=== PATIENT | male | born 1965 | race Caucasian/White ===

== ENCOUNTER 2023-08-21 00:59 | Inpatient (IN) | payer BC ==
[2023-08-21 01:55] LABS: TROPONIN I 34.7 pg/mL (4.0-60.3)
[2023-08-21 01:59] LABS: BASOPHILS ABSOLUTE AUTO 0.1 x10-3/uL (0.0-0.3); BASOPHILS PERCENT AUTO 1.2 % (0.3-3.8); EOSINOPHILS ABSOLUTE AUTO 0.1 x10-3/uL (0.0-0.6); EOSINOPHILS PERCENT AUTO 2.2 % (0.1-6.8); HEMATOCRIT 37.5 % (38.3-50.1); HEMOGLOBIN 13.1 g/dL (12.9-17.7); LYMPHOCYTES ABSOLUTE AUTO 1.4 x10-3/uL (0.5-4.5); LYMPHOCYTES PERCENT AUTO 26.8 % (15.8-45.3); MEAN CORPUSCULAR HEMOGLOBIN 33.9 pg (27.0-33.3); MEAN CORPUSCULAR HGB CONC 34.9 g/dL (28.7-35.3); MEAN CORPUSCULAR VOLUME 97.2 fL (80.8-98.7); MONOCYTES ABSOLUTE AUTO 0.6 x10-3/uL (0.0-1.2); MONOCYTES PERCENT AUTO 10.3 % (5.5-15.2); NEUTROPHILS ABSOLUTE AUTO 3.2 x10-3/uL (1.7-6.9); NEUTROPHILS PERCENT AUTO 59.5 % (40.3-71.8); PLATELET COUNT,PLT 93 x10(3)uL (117-477); RED BLOOD CELL COUNT 3.85 x10(6)uL (3.90-5.90); RED CELL DISTRIBUTION WIDTH 14.7 % (12.4-15.0); WHITE BLOOD CELL COUNT,WBC 5.4 x10-3/uL (3.2-10.1)
[2023-08-21 02:02] LABS: ETHANOL BLOOD MEDICAL < 0.03 % (<0.03)
[2023-08-21 02:05] LABS: INR 1.13 (1.00-1.24); PROTHROMBIN TIME 11.6 sec (9.0-11.1); PTT,PARTIAL THROMBOPLSTIN TIME 32.3 SECONDS (24.4-33.2)
[2023-08-21 02:09] LABS: APPEARANCE,URINE CLEAR (CLEAR); BACTERIA,URINE FEW (NS); BILIRUBIN,URINE NEGATIVE (NEGATIVE); COLOR,URINE YELLOW (YELLOW); GLUCOSE,URINE NORMAL (NORMAL); KETONES,URINE NEGATIVE (NEGATIVE); LEUKOCYTE ESTERASE,URINE NEGATIVE (NEGATIVE); NITRITE,URINE NEGATIVE (NEGATIVE); OCCULT BLOOD,URINE NEGATIVE (NEGATIVE); PROTEIN,URINE NEGATIVE (NEGATIVE); RBC,URINE 0-5 (0-5); SQUAMOUS EPITHELIAL CELLS,UR RARE (NS,R,O); UROBILINOGEN,URINE NORMAL (NEGATIVE); WBC,URINE 0-5 (0-5)
[2023-08-21 02:14] LABS: A/G RATIO 0.9; ALANINE AMINOTRANSFERASE,ALT 30 U/L (12-36); ALBUMIN 3.4 g/dL (3.5-5.2); ALKALINE PHOSPHATASE 62 IU/L (56-112); ASPARTATE AMNIOTRANSFERASE,AST 52 IU/L (5-25); BILIRUBIN TOTAL 0.6 mg/dL (0.1-1.3); BLOOD UREA NITROGEN,BUN 13 mg/dL (7-18); BUN/CREATININE RATIO 5.2 (9-20); CARBON DIOXIDE,CO2 36 mmol/L (21-32); CHLORIDE,CL 97 mmol/L (100-110); EST CRCL DRUG DOSING (CG) 31.16 mL/min; ESTIMATED GFR 29 mL/min (>60); GLUCOSE RANDOM 112 mg/dL (80-116); PROTEIN TOTAL,TP 7.1 g/dL (6.0-8.0); SODIUM,NA 141 mmol/L (135-145)
[2023-08-21 02:15] LABS: CREATININE 2.5 mg/dL (0.70-1.30); POTASSIUM,K 2.6 mmol/L (3.5-5.3)
[2023-08-21 02:16] LABS: CALCIUM 14.9 mg/dL (8.6-10.2)
[2023-08-21 02:22] LABS: AMPHETAMINES SCREEN, URINE NEGATIVE (NEGATIVE); BARBITURATE SCREEN,URINE NEGATIVE (NEGATIVE); BENZODIAZEPINES SCREEN,URINE NEGATIVE (NEGATIVE); METHADONE SCREEN, URINE NEGATIVE (NEGATIVE); METHAMPHETAMINE SCREEN, URINE NEGATIVE (NEGATIVE); OXYCODONE SCREEN,URINE POSITIVE (NEGATIVE); THC SCREEN,URINE NEGATIVE (NEGATIVE)
[2023-08-21] MEDS ORDERED: Potassium Chloride 20 MEQ Tab.ER PO ONE (02:22)
[2023-08-21 02:23] LABS: BUPRENORPHINE SCREEN,URINE NEGATIVE (NEGATIVE)
[2023-08-21] MEDS ORDERED: NS + KCl 20mEq/L 1,000 ML IV SCH ×2 (02:30→03:45)
[2023-08-21] MEDS ORDERED: Potassium Chloride 100 ML ONE (02:38)
[2023-08-21] MEDS ORDERED: Potassium Chloride 20 MEQ in Premix Bag 1 BAG IV ONE (02:39)
[2023-08-21] MEDS ORDERED: Sodium Chloride 0.9% 1,000 ML IV SCH (02:45)
[2023-08-21] MEDS ORDERED: Magnesium Sulfate/Water 2 GM in Premix Bag 1 BAG IV ONE (03:04)
[2023-08-21] MEDS ORDERED: Ondansetron 4 MG/2 ML SDV IV PRN (03:31)
[2023-08-21] MEDS ORDERED: Sennosides/Docusate Sodium 50-8.6 MG Tab PO PRN (03:31)
[2023-08-21] MEDS ORDERED: Enoxaparin 40 MG/0.4 ML Syringe SUBCUT SCH (03:45)
[2023-08-21 06:44] LABS: BASOPHILS ABSOLUTE AUTO 0.1 x10-3/uL (0.0-0.3); BASOPHILS PERCENT AUTO 1.1 % (0.3-3.8); EOSINOPHILS ABSOLUTE AUTO 0.1 x10-3/uL (0.0-0.6); EOSINOPHILS PERCENT AUTO 2.6 % (0.1-6.8); HEMATOCRIT 36.7 % (38.3-50.1); HEMOGLOBIN 12.6 g/dL (12.9-17.7); LYMPHOCYTES ABSOLUTE AUTO 1.4 x10-3/uL (0.5-4.5); LYMPHOCYTES PERCENT AUTO 24.4 % (15.8-45.3); MEAN CORPUSCULAR HEMOGLOBIN 33.4 pg (27.0-33.3); MEAN CORPUSCULAR HGB CONC 34.4 g/dL (28.7-35.3); MEAN CORPUSCULAR VOLUME 97.3 fL (80.8-98.7); MEAN PLATELET VOLUME 8.3 fL (6.7-11.0); MONOCYTES ABSOLUTE AUTO 0.5 x10-3/uL (0.0-1.2); MONOCYTES PERCENT AUTO 8.6 % (5.5-15.2); NEUTROPHILS ABSOLUTE AUTO 3.5 x10-3/uL (1.7-6.9); NEUTROPHILS PERCENT AUTO 63.3 % (40.3-71.8); PLATELET COUNT,PLT 93 x10(3)uL (117-477); RED BLOOD CELL COUNT 3.77 x10(6)uL (3.90-5.90); RED CELL DISTRIBUTION WIDTH 14.4 % (12.4-15.0); WHITE BLOOD CELL COUNT,WBC 5.6 x10-3/uL (3.2-10.1)
[2023-08-21 06:57] LABS: A/G RATIO 0.9; ALANINE AMINOTRANSFERASE,ALT 27 U/L (12-36); ALBUMIN 3.1 g/dL (3.5-5.2); ALKALINE PHOSPHATASE 57 IU/L (56-112); ASPARTATE AMNIOTRANSFERASE,AST 44 IU/L (5-25); BILIRUBIN TOTAL 0.6 mg/dL (0.1-1.3); BLOOD UREA NITROGEN,BUN 12 mg/dL (7-18); BUN/CREATININE RATIO 5.2 (9-20); CARBON DIOXIDE,CO2 34 mmol/L (21-32); CHLORIDE,CL 100 mmol/L (100-110); EST CRCL DRUG DOSING (CG) 33.87 mL/min; ESTIMATED GFR 32 mL/min (>60); GLUCOSE RANDOM 89 mg/dL (80-116); MAGNESIUM 1.4 mg/dL (1.8-2.5); POTASSIUM,K 2.9 mmol/L (3.5-5.3); PROTEIN TOTAL,TP 6.7 g/dL (6.0-8.0); SODIUM,NA 138 mmol/L (135-145)
[2023-08-21 07:00] LABS: CALCIUM 13.4 mg/dL (8.6-10.2); CREATININE 2.3 mg/dL (0.70-1.30)
[2023-08-21] MEDS ORDERED: Baclofen 10 MG Tab PO PRN (08:58)
[2023-08-21] MEDS ORDERED: Clobetasol 0.05% Crm 15 GM Tube TOP PRN (08:58)
[2023-08-21] MEDS ORDERED: Doxazosin 4 MG Tab PO SCH (09:00)
[2023-08-21] MEDS: oxyCODONE 5 MG Tab PO PRN ×2 (09:30→20:31)
[2023-08-21] MEDS: Doxazosin 2 MG Tab PO SCH ×2 (09:42→20:26)
[2023-08-21] MEDS: Potassium Chloride 20 MEQ Tab.ER PO SCH ×2 (09:43→20:27)
[2023-08-21] MEDS: Losartan 25 MG Tab PO SCH (09:43)
[2023-08-21] MEDS: Folic Acid 1 MG Tab PO SCH (09:43)
[2023-08-21] MEDS: buPROPion 150 MG Tab.ER PO SCH (09:43)
[2023-08-21] MEDS: Escitalopram 20 MG Tab PO SCH (09:43)
[2023-08-21] MEDS: Metoprolol Tartrate 50 MG Tab PO SCH ×2 (09:44→20:27)
[2023-08-21] MEDS: Pantoprazole 40 MG Tab.CR PO SCH (09:44)
[2023-08-21] MEDS: Allopurinol 300 MG Tab PO SCH (09:56)
[2023-08-21] MEDS ORDERED: FLU (Flulaval Quad) 2023-24(6MOS UP)/PF 60 MCG/0.5 ML Syringe IM ONE (10:00)
[2023-08-21] MEDS: NS + KCl 20mEq/L 1,000 ML IV SCH ×2 (12:57→22:05)
[2023-08-21] MEDS: Sodium Chloride 0.9% 10 ML Syringe FLUSH PRN ×2 (17:10→22:30)
[2023-08-21] MEDS: hydrOXYzine HCl 25 MG Tab PO PRN (20:31)
[2023-08-21] MEDS ORDERED: MONTELUKAST SODIUM 4 MG PO SCH (21:00)
[2023-08-22] MEDS: hydrOXYzine HCl 25 MG Tab PO PRN (03:34)
[2023-08-22] MEDS ORDERED: LORazepam 2 MG/ML SDV IVPUSH ONE (05:59)
[2023-08-22] MEDS: Sodium Chloride 0.9% 10 ML Syringe FLUSH PRN ×2 (06:31→10:20)
[2023-08-22] MEDS: NS + KCl 20mEq/L 1,000 ML IV SCH ×3 (06:39→15:49)
[2023-08-22 06:51] LABS: BASOPHILS PERCENT AUTO 0.8 % (0.3-3.8); EOSINOPHILS ABSOLUTE AUTO 0.1 x10-3/uL (0.0-0.6); EOSINOPHILS PERCENT AUTO 1.6 % (0.1-6.8); HEMATOCRIT 31.3 % (38.3-50.1); HEMOGLOBIN 10.8 g/dL (12.9-17.7); LYMPHOCYTES ABSOLUTE AUTO 1.6 x10-3/uL (0.5-4.5); LYMPHOCYTES PERCENT AUTO 27.1 % (15.8-45.3); MEAN CORPUSCULAR HGB CONC 34.5 g/dL (28.7-35.3); MEAN CORPUSCULAR VOLUME 98.6 fL (80.8-98.7); MEAN PLATELET VOLUME 8.9 fL (6.7-11.0); MONOCYTES ABSOLUTE AUTO 0.5 x10-3/uL (0.0-1.2); NEUTROPHILS ABSOLUTE AUTO 3.6 x10-3/uL (1.7-6.9); NEUTROPHILS PERCENT AUTO 62.5 % (40.3-71.8); PLATELET COUNT,PLT 82 x10(3)uL (117-477); RED BLOOD CELL COUNT 3.17 x10(6)uL (3.90-5.90); RED CELL DISTRIBUTION WIDTH 14.6 % (12.4-15.0); WHITE BLOOD CELL COUNT,WBC 5.8 x10-3/uL (3.2-10.1)
[2023-08-22 06:57] LABS: BLOOD UREA NITROGEN,BUN 13 mg/dL (7-18); BUN/CREATININE RATIO 6.8 (9-20); CALCIUM 10.2 mg/dL (8.6-10.2); CARBON DIOXIDE,CO2 28 mmol/L (21-32); CHLORIDE,CL 105 mmol/L (100-110); CREATININE 1.9 mg/dL (0.70-1.30); ESTIMATED GFR 40 mL/min (>60); GLUCOSE RANDOM 76 mg/dL (80-116); POTASSIUM,K 3.6 mmol/L (3.5-5.3); SODIUM,NA 138 mmol/L (135-145)
[2023-08-22] MEDS ORDERED: Magnesium Sulfate/Water 2 GM in Premix Bag 1 BAG IV ONE (08:48)
[2023-08-22] MEDS: Doxazosin 2 MG Tab PO SCH ×2 (09:48→21:14)
[2023-08-22] MEDS: Potassium Chloride 20 MEQ Tab.ER PO SCH ×2 (09:49→21:15)
[2023-08-22] MEDS: Pantoprazole 40 MG Tab.CR PO SCH (09:49)
[2023-08-22] MEDS: Escitalopram 20 MG Tab PO SCH (09:49)
[2023-08-22] MEDS: buPROPion 150 MG Tab.ER PO SCH (09:49)
[2023-08-22] MEDS: Metoprolol Tartrate 50 MG Tab PO SCH ×2 (09:49→21:17)
[2023-08-22] MEDS: Losartan 25 MG Tab PO SCH (09:49)
[2023-08-22] MEDS: Folic Acid 1 MG Tab PO SCH (09:49)
[2023-08-22] MEDS: Allopurinol 300 MG Tab PO SCH (09:49)
[2023-08-22] MEDS ORDERED: Magnesium Sulfate/Water 4 GM in Premix Bag 1 BAG IV ONE (11:00)
[2023-08-22] MEDS: Nicotine 21 MG/24 Hr Patch TRDERM SCH (13:27)
[2023-08-22 13:30] LABS: TSH ULTRASENSITIVE 2.16 IU/mL (0.36-3.74)
[2023-08-22] MEDS ORDERED: LORazepam 2 MG/ML SDV IVPUSH PRN (13:36)
[2023-08-22 15:59] LABS: PARATHYROID HORMONE,INTACT 25 pg/mL (15-65)
[2023-08-22] MEDS: oxyCODONE 5 MG Tab PO PRN (21:09)
[2023-08-22 21:18] LABS: AMMONIA, PLASMA 12
[2023-08-23] MEDS: NS + KCl 20mEq/L 1,000 ML IV SCH ×3 (00:19→16:41)
[2023-08-23] MEDS: Acetaminophen 325 MG Tab PO PRN ×2 (00:28→12:18)
[2023-08-23] MEDS: oxyCODONE 5 MG Tab PO PRN ×3 (04:09→21:43)
[2023-08-23 06:44] LABS: BASOPHILS ABSOLUTE AUTO 0.1 x10-3/uL (0.0-0.3); BASOPHILS PERCENT AUTO 1.1 % (0.3-3.8); EOSINOPHILS ABSOLUTE AUTO 0.1 x10-3/uL (0.0-0.6); EOSINOPHILS PERCENT AUTO 1.8 % (0.1-6.8); HEMATOCRIT 31.9 % (38.3-50.1); LYMPHOCYTES ABSOLUTE AUTO 1.8 x10-3/uL (0.5-4.5); LYMPHOCYTES PERCENT AUTO 32.8 % (15.8-45.3); MEAN CORPUSCULAR HEMOGLOBIN 33.7 pg (27.0-33.3); MEAN CORPUSCULAR HGB CONC 34.3 g/dL (28.7-35.3); MEAN CORPUSCULAR VOLUME 98.3 fL (80.8-98.7); MEAN PLATELET VOLUME 9.1 fL (6.7-11.0); MONOCYTES ABSOLUTE AUTO 0.5 x10-3/uL (0.0-1.2); NEUTROPHILS PERCENT AUTO 55.3 % (40.3-71.8); PLATELET COUNT,PLT 76 x10(3)uL (117-477); RED BLOOD CELL COUNT 3.25 x10(6)uL (3.90-5.90); RED CELL DISTRIBUTION WIDTH 14.8 % (12.4-15.0); WHITE BLOOD CELL COUNT,WBC 5.4 x10-3/uL (3.2-10.1)
[2023-08-23 06:52] LABS: BLOOD UREA NITROGEN,BUN 13 mg/dL (7-18); BUN/CREATININE RATIO 8.1 (9-20); CALCIUM 8.6 mg/dL (8.6-10.2); CARBON DIOXIDE,CO2 24 mmol/L (21-32); CHLORIDE,CL 106 mmol/L (100-110); CREATININE 1.6 mg/dL (0.70-1.30); EST CRCL DRUG DOSING (CG) 48.69 mL/min; ESTIMATED GFR 50 mL/min (>60); GLUCOSE RANDOM 79 mg/dL (80-116); POTASSIUM,K 4.3 mmol/L (3.5-5.3); SODIUM,NA 137 mmol/L (135-145)
[2023-08-23] MEDS: Folic Acid 1 MG Tab PO SCH (08:04)
[2023-08-23] MEDS: Doxazosin 2 MG Tab PO SCH ×2 (08:05→21:35)
[2023-08-23] MEDS: Metoprolol Tartrate 50 MG Tab PO SCH ×2 (08:07→21:35)
[2023-08-23] MEDS: Losartan 25 MG Tab PO SCH (08:08)
[2023-08-23] MEDS: Escitalopram 20 MG Tab PO SCH (08:09)
[2023-08-23] MEDS: Potassium Chloride 20 MEQ Tab.ER PO SCH (08:09)
[2023-08-23] MEDS: Nicotine 21 MG/24 Hr Patch TRDERM SCH (08:10)
[2023-08-23] MEDS: Pantoprazole 40 MG Tab.CR PO SCH (08:11)
[2023-08-23] MEDS: NICOTINE PATCH TRDERM SCH (08:11)
[2023-08-23] MEDS: Allopurinol 300 MG Tab PO SCH (08:12)
[2023-08-23] MEDS: buPROPion 150 MG Tab.ER PO SCH (08:12)
[2023-08-23] MEDS: Nicotine Polacrilex 2 MG Gum BUCCAL PRN (14:51)
[2023-08-23 18:58] LABS: CALCIUM IONIZED PH 7.4 1.44 mmol/L (1.09-1.30); CALCIUM,IONIZED SERUM 1.35 mmol/L (1.09-1.30)
[2023-08-24] MEDS: oxyCODONE 5 MG Tab PO PRN (06:55)
[2023-08-24] MEDS: Nicotine Polacrilex 2 MG Gum BUCCAL PRN (07:00)
[2023-08-24] MEDS: Losartan 25 MG Tab PO SCH (08:30)
[2023-08-24] MEDS: Doxazosin 2 MG Tab PO SCH (08:30)
[2023-08-24] MEDS: Nicotine 21 MG/24 Hr Patch TRDERM SCH (08:31)
[2023-08-24] MEDS: Folic Acid 1 MG Tab PO SCH (08:31)
[2023-08-24] MEDS: Escitalopram 20 MG Tab PO SCH (08:33)
[2023-08-24] MEDS: Metoprolol Tartrate 50 MG Tab PO SCH (08:33)
[2023-08-24] MEDS: Pantoprazole 40 MG Tab.CR PO SCH (08:35)
[2023-08-24] MEDS: buPROPion 150 MG Tab.ER PO SCH (08:35)
[2023-08-24 08:36] VITALS: BP 160/80; PULSE 68
[2023-08-24] MEDS: Allopurinol 300 MG Tab PO SCH (08:36)
[2023-08-24] MEDS: NICOTINE PATCH TRDERM SCH (08:37)
[2023-08-24] MEDS ORDERED: Potassium Chloride 20 MEQ Tab.ER PO SCH (09:00)
[2023-08-24] MEDS: Acetaminophen 325 MG Tab PO PRN (10:47)
== END 2023-08-24 12:45 | disposition home or self-care (01) | DRG 52 ==
LOC: FB.ED 00:59 → UNDOADMOB 03:31 → FB.MS 03:31 → OBSVTOIN 08-22 15:17
PROVIDERS: ADMIT Emergency Medicine; ATTEND Family Medicine
DX: G93.40 Encephalopathy, unspecified (principal); N17.9 Acute kidney failure, unspecified; I42.8 Other cardiomyopathies; E83.42 Hypomagnesemia; E66.01 Morbid (severe) obesity due to excess calories; F33.1 Major depressive disorder, recurrent, moderate; Z68.41 Body mass index [BMI] 40.0-44.9, adult; E83.52 Hypercalcemia; I10 Essential (primary) hypertension; E87.6 Hypokalemia; G47.33 Obstructive sleep apnea (adult) (pediatric); E78.5 Hyperlipidemia, unspecified; E13.9 Other specified diabetes mellitus without complications; F17.210 Nicotine dependence, cigarettes, uncomplicated; G89.4 Chronic pain syndrome; J43.9 Emphysema, unspecified; K21.9 Gastro-esophageal reflux disease without esophagitis; R45.1 Restlessness and agitation; Z79.899 Other long term (current) drug therapy
CPT/HCPCS: 36415; 70450; 71045; 80048; 80053; 80307; 81001; 82140; 82330; 82607; 83735; 83970; 84443; 84484; 85025; 85610; 85730; 90686; 93005; 96365; 96366; 96368; 96375; 96376; 99285-25; A9270-GY; G0008; G0378; J2060; J3475; J3480; J3490; J7030; J7512